=== PATIENT | female | born 1980 | race Caucasian/White ===

== ENCOUNTER 2018-09-04 10:37 | Emergency (ER) | payer BC ==
--- NOTE | 2018-09-04 12:23 | RAD REPORT ---
EXAM DESCRIPTION: RAD - Chest Single View - 09/04/2018 12:19 pm CLINICAL HISTORY: CHEST PAIN Chest pain. COMPARISON: Chest Pa And Lat (2 Views) dated 11/16/2015; Chest Single View dated 11/13/2015 FINDINGS: Portable technique limits examination quality. The lungs are grossly clear. The heart is normal in size. No displaced fractures. IMPRESSION: No acute intrathoracic process suspected.
[2018-09-04] MEDS ORDERED: ASPIRIN 81 MG CHEWABLE TABLET ONE (12:24)
[2018-09-04] MEDS ORDERED: METOPROLOL XL 50 MG TAB PO ONE (12:24)
[2018-09-04] MEDS ORDERED: NA CHLORIDE 0.9% 1,000 ML ONE (12:24)
[2018-09-04 12:40] LABS: Absolute Lymphocytes (CBC) 2.1 K/uL (0.7-4.9); Absolute Monocytes 0.6 K/uL (0.1-1.3); Absolute Neutrophil 3.8 K/uL (1.8-8.0); Basophils % 0.6 % (0-1.3); Hematocrit 40.3 % (36.0-45.0); Lymphocytes % 31.7 % (15.3-44.8); MPV 9.8 fL (7.6-11.3); Monocytes % 8.2 % (3.3-12.3); RBC Red Blood Cell Count 5.02 M/uL (3.86-4.86)
[2018-09-04 12:44] LABS: Protime INR 1.08
[2018-09-04 13:12] LABS: ALT/SGPT 23 U/L (12-78); AST/SGOT 19 U/L (15-37); Albumin 3.7 g/dL (3.4-5.0); Alkaline Phosphatase 69 U/L (45-117); BUN Blood Urea Nitrogen 12 mg/dL (7-18); Bicarbonate 27 mmol/L (21-32); Bilirubin Direct < 0.1 mg/dL (0-0.2); Bilirubin Total 0.3 mg/dL (0.2-1.0); CKMB Creatine Kinase MB < 1.0 ng/mL (0.3-3.6); Creatine Phosphokinase 55 U/L (26-192); Glucose Level 82 mg/dL (74-106); Magnesium 1.8 mg/dL (1.8-2.4); NT PRO-BNP 24 pg/mL (<125); Potassium 3.9 mmol/L (3.5-5.1); Protein, Total 7.4 g/dL (6.4-8.2); Sodium Level 141 mmol/L (136-145); Troponin (Emerg Dept Use Only) < 0.02 ng/mL (0.0-0.045)
--- NOTE | 2018-09-04 13:20 | ER ---
Nurse's Notes [facility] Name: Yumiko Orozco Age: 38 yrs Sex: Female : 1980 Arrival Date: 09/04/2018 Time: 10:40 Bed 23 Private MD: Aly Demarco Diagnosis: Palpitations;Pain in left arm Presentation: 09/04 10:45 Presenting complaint: Patient states: left arm pain x 1 day and pain has increased sv since last night. Reports feeling "flutters" in her heart at night when she lays down. Denies SOB, n/v/d. Transition of care: patient was not received from another setting of care. Onset of symptoms was September 03, 2018. Care prior to arrival: None. 10:45 Method Of Arrival: Ambulatory sv 10:45 Acuity: TROY 3 sv 13:56 Risk Assessment: Do you want to hurt yourself or someone else? Patient reports no aj desire to harm self or others. Initial Sepsis Screen: Does the patient meet any 2 criteria? No. Patient's initial sepsis screen is negative. Does the patient have a suspected source of infection? No. Patient's initial sepsis screen is negative. 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 - Social history:: Smoking status: Patient/guardian denies using tobacco. - Family history:: not pertinent. - Ebola Screening: : Patient negative for fever greater than or equal to 101.5 degrees Fahrenheit, and additional compatible Ebola Virus Disease symptoms Patient denies exposure to infectious person Patient denies travel to an Ebola-affected area in the 21 days before illness onset No symptoms or risks identified at this time. Screenin:10 Abuse screen: Denies threats or abuse. Denies injuries from another. Nutritional aj screening: No deficits noted. Tuberculosis screening: No symptoms or risk factors identified. Fall Risk None identified. Assessment: 11:10 General: Appears in no apparent distress. comfortable, Behavior is calm, cooperative, aj appropriate for age. Pain: Complains of pain in left arm. Neuro: Level of Consciousness is awake, alert, obeys commands, Oriented to person, place, time, situation, Appropriate for age. Cardiovascular: Reports palpitations, Capillary refill < 3 seconds in bilateral fingers Patient's skin is warm and dry. Respiratory: Airway is patent Respiratory effort is even, unlabored, Respiratory pattern is regular, symmetrical. Derm: Skin is intact, is healthy with good turgor, Skin is pink, warm \\T\\ dry. normal. 13:20 Reassessment: Patient discharge pending physician. Patient waiting for diagnosis. aj 13:41 Reassessment: Patient appears in no apparent distress at this time. No changes from aj previously documented assessment. Patient and/or family updated on plan of care and expected duration. Pain level reassessed. Patient is alert, oriented x 3, equal unlabored respirations, skin warm/dry/pink. Patient denies pain at this time. Vital Signs: 10:46 BP 123 / 78; Pulse 78; Resp 18; Temp 98.2; Pulse Ox 100% ; Weight 79.38 kg; Height 5 sv ft. 6 in. (167.64 cm); Pain 5/10; 12:27 BP 109 / 75; Pulse 72; Resp 20; Pulse Ox 100% on R/A; aj 13:19 BP 112 / 89; Pulse 69; Resp 18; Pulse Ox 100% on R/A; aj 10:46 Body Mass Index 28.25 (79.38 kg, 167.64 cm) sv ED Course: 10:40 Patient arrived in ED. mr 10:40 Aly Demarco MD is Private Physician. mr 10:46 Triage completed. sv 10:48 Arm band placed on. sv 10:51 Alexandrea Herrera, RAISA is Primary Nurse. aj 10:53 Narciso Perdomo MD is Attending Physician. jerilyn 11:10 Patient has correct armband on for positive identification. aj 11:15 EKG done, by aviation safety equipment technician. reviewed by Narciso Perdomo MD. at1 12:17 X-ray completed. Portable x-ray completed in exam room. Patient tolerated procedure jw2 well. 12:19 XRAY Chest (1 view) In Process Unspecified. EDMS 12:23 Inserted saline lock: 20 gauge in left antecubital area, using aseptic technique. Blood aj collected. 12:26 TSH Sent. aj 12:26 Ckmb Sent. aj 12:26 Basic Metabolic Panel Sent. aj 12:26 CBC with Diff Sent. aj 12:26 LFT's Sent. aj 12:26 Magnesium Sent. aj 12:26 NT PRO-BNP Sent. aj 12:27 PT-INR Sent. aj 12:27 Troponin (emerg Dept Use Only) Sent. aj 13:19 Aly Demarco MD is Referral Physician. jerilyn 13:19 Javed Louise MD is Referral Physician. jerilyn 13:55 No provider procedures requiring assistance completed. IV discontinued, intact, aj bleeding controlled, No redness/swelling at site. Pressure dressing applied. Administered Medications: 12:22 Drug: Aspirin 162 mg Route: PO; aj 13:18 Follow up: Response: No adverse reaction aj 12:24 Not Given (Hemodynamic Parameters): ToPROL XL 25 mg PO once aj Outcome: 13:19 Discharge ordered by MD. jerilyn 13:55 Discharged to home ambulatory, with friend. aj 13:55 Condition: good 13:55 Discharge instructions given to patient, Instructed on discharge instructions, follow up and referral plans. medication usage, Demonstrated understanding of instructions, follow-up care, medications, Prescriptions given X 1. 13:57 Patient left the ED. aj Signatures: Dispatcher [employer] EDCristal Hernandez RN RN sv Myers, Amanda, Narciso Hsatings RN, MD MD cha Rivera, [facility] Alexandrea Gale, pan devulcanizer helper EKG Tat1 Neris Rodrigues jw2
--- NOTE | 2018-09-04 13:20 | EDPHYS ---
Physician Documentation [facility] Name: Yumiko Orozco Age: 38 yrs Sex: Female : 1980 Arrival Date: 09/04/2018 Time: 10:40 Bed 23 Private MD: Aly Demarco ED Physician Narciso Perdomo HPI: 09/04 12:02 This 38 yrs old Female presents to ER via Ambulatory with complaints of Arm jerilyn Pain. 12:02 The patient or guardian complains of pain. The complaints affect the left bicep, dorsal jerilyn aspect of left forearm, left tricep and palmar aspect of left forearm. Context: The problem was sustained at home. Onset: The symptoms/episode began/occurred last night. Modifying factors: The symptoms are alleviated by nothing. the symptoms are aggravated by nothing. Associated signs and symptoms: The patient has no apparent associated signs or symptoms. 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 - Social history:: Smoking status: Patient/guardian denies using tobacco. - Family history:: not pertinent. - Ebola Screening: : Patient negative for fever greater than or equal to 101.5 degrees Fahrenheit, and additional compatible Ebola Virus Disease symptoms Patient denies exposure to infectious person Patient denies travel to an Ebola-affected area in the 21 days before illness onset No symptoms or risks identified at this time. ROS: 12:02 Constitutional: Negative for fever, chills, and weight loss, Eyes: Negative for injury, jerilyn pain, redness, and discharge, ENT: Negative for injury, pain, and discharge, Neck: Negative for injury, pain, and swelling, Cardiovascular: Negative for chest pain, palpitations, and edema, Respiratory: Negative for shortness of breath, cough, wheezing, and pleuritic chest pain, Abdomen/GI: Negative for abdominal pain, nausea, vomiting, diarrhea, and constipation, Back: Negative for injury and pain, : Negative for injury, bleeding, discharge, and swelling, Skin: Negative for injury, rash, and discoloration, Neuro: Negative for headache, weakness, numbness, tingling, and seizure, Psych: Negative for depression, anxiety, suicide ideation, homicidal ideation, and hallucinations, Allergy/Immunology: Negative for hives, rash, and allergies, Endocrine: Negative for neck swelling, polydipsia, polyuria, polyphagia, and marked weight changes. 12:02 MS/extremity: Positive for pain, of the left arm. Exam: 12:02 Constitutional: This is a well developed, well nourished patient who is awake, alert, jerilyn and in no acute distress. Head/Face: Normocephalic, atraumatic. Eyes: Pupils equal round and reactive to light, extra-ocular motions intact. Lids and lashes normal. Conjunctiva and sclera are non-icteric and not injected. Cornea within normal limits. Periorbital areas with no swelling, redness, or edema. ENT: Nares patent. No nasal discharge, no septal abnormalities noted. Tympanic membranes are normal and external auditory canals are clear. Oropharynx with no redness, swelling, or masses, exudates, or evidence of obstruction, uvula midline. Mucous membranes moist. Neck: Trachea midline, no thyromegaly or masses palpated, and no cervical lymphadenopathy. Supple, full range of motion without nuchal rigidity, or vertebral point tenderness. No Meningismus. Chest/axilla: Normal chest wall appearance and motion. Nontender with no deformity. No lesions are appreciated. Cardiovascular: Regular rate and rhythm with a normal S1 and S2. No gallops, murmurs, or rubs. Normal PMI, no JVD. No pulse deficits. Respiratory: Lungs have equal breath sounds bilaterally, clear to auscultation and percussion. No rales, rhonchi or wheezes noted. No increased work of breathing, no retractions or nasal flaring. Abdomen/GI: Soft, non-tender, with normal bowel sounds. No distension or tympany. No guarding or rebound. No evidence of tenderness throughout. Back: No spinal tenderness. No costovertebral tenderness. Full range of motion. Female : Normal external genitalia. Skin: Warm, dry with normal turgor. Normal color with no rashes, no lesions, and no evidence of cellulitis. MS/ Extremity: Pulses equal, no cyanosis. Neurovascular intact. Full, normal range of motion. Neuro: Awake and alert, GCS 15, oriented to person, place, time, and situation. Cranial nerves II-XII grossly intact. Motor strength 5/5 in all extremities. Sensory grossly intact. Cerebellar exam normal. Normal gait. Psych: Awake, alert, with orientation to person, place and time. Behavior, mood, and affect are within normal limits. 12:08 Musculoskeletal/extremity: DVT Exam: No signs of deep vein thrombosis. no pain, no jerilyn swelling, no tenderness, negative Homans' sign noted on exam, no appreciated bluish discoloration, no erythema, no increased warmth. Vital Signs: 10:46 BP 123 / 78; Pulse 78; Resp 18; Temp 98.2; Pulse Ox 100% ; Weight 79.38 kg; Height 5 sv ft. 6 in. (167.64 cm); Pain 5/10; 12:27 BP 109 / 75; Pulse 72; Resp 20; Pulse Ox 100% on R/A; aj 13:19 BP 112 / 89; Pulse 69; Resp 18; Pulse Ox 100% on R/A; aj 10:46 Body Mass Index 28.25 (79.38 kg, 167.64 cm) sv MDM: 10:[address] [facility] 12:07 Data reviewed: vital signs, nurses notes, lab test result(s), EKG, radiologic studies, jerilyn plain films. 09/04 12:02 Order name: Basic Metabolic Panel; Complete Time: 13:18 [facility] 09/04 12:02 Order name: CBC with Diff; Complete Time: 12:56 [facility] 09/04 12:02 Order name: LFT's; Complete Time: 13:18 [facility] 09/04 12:02 Order name: Magnesium; Complete Time: 13:18 [facility] 09/04 12:02 Order name: NT PRO-BNP; Complete Time: 13:18 [facility] 09/04 12:02 Order name: PT-INR; Complete Time: 13:18 [facility] 09/04 10:48 Order name: EKG; Complete Time: 10:49 09/04 12:02 Order name: Troponin (emerg Dept Use Only); Complete Time: 13:18 [facility] 09/04 12:02 Order name: XRAY Chest (1 view); Complete Time: 12:56 [facility] 09/04 12:02 Order name: CK; Complete Time: 13:18 [facility] 09/04 12:02 Order name: Ckmb; Complete Time: 13:18 [facility] 09/04 12:08 Order name: TSH; Complete Time: 13:18 [facility] 09/04 10:48 Order name: EKG - Nurse/Tech; Complete Time: 10:58 09/04 12:02 Order name: Cardiac monitoring; Complete Time: 12:11 [facility] 09/04 12:02 Order name: IV Saline Lock; Complete Time: 12:11 [facility] 09/04 12:02 Order name: Labs collected and sent; Complete Time: 12:11 [facility] 09/04 12:02 Order name: O2 Per Protocol; Complete Time: 12:11 [facility] 09/04 12:02 Order name: O2 Sat Monitoring; Complete Time: 12:11 [facility] Administered Medications: 12:22 Drug: Aspirin 162 mg Route: PO; aj 13:18 Follow up: Response: No adverse reaction 12:24 Not Given (Hemodynamic Parameters): ToPROL XL 25 mg PO once aj Disposition: 09/04/18 13:19 Discharged to Home. Impression: Palpitations, Pain in left arm. - Condition is Stable. - Discharge Instructions: Musculoskeletal Pain, Palpitations, Aspirin and Your Heart, Palpitations, [id number]. - Prescriptions for Toprol XL 25 mg Oral Tablet - take 1 tablet by ORAL route once daily; 20 tablet. - Medication Reconciliation Form, Thank You Letter, Antibiotic Education, Prescription Opioid Use form. - Follow up: Aly Demarco; When: 2 - 3 days; Reason: Recheck today's complaints, Continuance of care, Re-evaluation by your physician. Follow up: Javed Louise; When: 2 - 3 days; Reason: Recheck today's complaints, Re-evaluation by your physician. - Problem is new. - Symptoms have improved. Signatures: Dispatcher [employer] EDCristal Hernandez RN RN sv Myers, Amanda, RN RN aj Anderson, Corey, MD MD cha Alzahri, Mohammad, MD MD [facility] Corrections: (The following items were deleted from the chart) 13:57 13:19 09/04/2018 13:19 Discharged to Home. Impression: Palpitations; Pain in left arm. aj Condition is Stable. Discharge Instructions: Musculoskeletal Pain, Palpitations, Aspirin and Your Heart, Palpitations, [id number]. Prescriptions for Toprol XL 25 mg Oral Tablet - take 1 tablet by ORAL route once daily; 20 tablet. and Forms are Medication Reconciliation Form, Thank You Letter, Antibiotic Education, Prescription Opioid Use. Follow up: Aly Demarco; When: 2 - 3 days; Reason: Recheck today's complaints, Continuance of care, Re-evaluation by your physician. Follow up: Javed Louise; When: 2 - 3 days; Reason: Recheck today's complaints, Re-evaluation by your physician. Problem is new. Symptoms have improved. jerilyn
[2018-09-04 14:29] VITALS: TEMP 98.2; O2SAT 100
[2018-09-04 14:32] VITALS: BP 112/89
--- NOTE | 2018-09-04 20:51 | EKG ---
Test Date: 2018-09-04 Test Time: 10:57:51 Dog Walker: DESTINY MEASUREMENT RESULTS: Intervals: Rate: 71 HI: 146 QRSD: 84 QT: 382 QTc: 415 [place]: P: 67 HI: 146 QRS: 38 T: 55 INTERPRETIVE STATEMENTS: Normal sinus rhythm Normal ECG Compared to ECG 11/16/2015 13:10:53 Sinus bradycardia no longer present Electronically Signed On 09-04-18 20:48:03 BARREL SCRAPER by Javed Louise
== END 2018-09-04 13:57 | disposition home or self-care (01) ==
LOC: ER 10:37
DX: R00.2 Palpitations (principal)
CPT/HCPCS: 36415; 71045; 80048; 80076; 82550; 82553; 83735; 83880; 84443; 84484; 85025; 85610; 93005; 99284; J7030

== ENCOUNTER 2018-10-11 16:54 | Emergency (ER) | payer BC ==
[2018-10-11] MEDS ORDERED: ONDANSETRON 4 MG/2 ML VIAL ONE (18:08)
[2018-10-11] MEDS ORDERED: MORPHINE 4 MG/ML SYR ONE (18:08)
[2018-10-11 18:24] LABS: Absolute Lymphocytes (CBC) 1.4 K/uL (0.7-4.9); Absolute Monocytes 0.8 K/uL (0.1-1.3); Absolute Neutrophil 4.6 K/uL (1.8-8.0); Basophils % 0.3 % (0-1.3); Eosinophils % 1.9 % (0-4.4); Lymphocytes % 20.1 % (15.3-44.8); MPV 9.7 fL (7.6-11.3); Monocytes % 11.2 % (3.3-12.3); RBC Red Blood Cell Count 5.22 M/uL (3.86-4.86)
[2018-10-11 18:32] LABS: ALT/SGPT 29 U/L (12-78); AST/SGOT 18 U/L (15-37); Albumin 3.6 g/dL (3.4-5.0); Alkaline Phosphatase 69 U/L (45-117); BUN Blood Urea Nitrogen 10 mg/dL (7-18); Bicarbonate 27 mmol/L (21-32); Bilirubin Direct 0.1 mg/dL (0-0.2); Bilirubin Total 0.4 mg/dL (0.2-1.0); Glucose Level 86 mg/dL (74-106); Lipase 130 U/L (73-393); Potassium 3.6 mmol/L (3.5-5.1); Protein, Total 7.4 g/dL (6.4-8.2); Sodium Level 138 mmol/L (136-145)
[2018-10-11 19:28] LABS: Urine Blood NEGATIVE (NEG); Urine Glucose NEGATIVE (NEG); Urine Protein NEGATIVE (NEG); Urine Specific Gravity 1.015 (1.005-1.030); Urine pH 5.5 (5.0-7.0)
--- NOTE | 2018-10-11 19:30 | RAD REPORT ---
EXAM DESCRIPTION: CT - Abdomen Pelvis W Contrast - 10/11/2018 7:09 pm CLINICAL HISTORY: Abdominal pain/right lower quadrant pain COMPARISON: none. TECHNIQUE: Computed axial tomography of the abdomen pelvis was obtained. 100 cc Isovue-300 was admin istered intravenously. Oral contrast was not requested which limits evaluation of bowel. All CT scans are performed using dose optimization technique as appropriate and may include automated exposure control or mA/KV adjustment according to patient size. FINDINGS: Small hepatic cyst. Cholecystectomy Spleen, pancreas, adrenal and kidneys appear unremarkable. There is no evidence of diverticulitis. The appendix is normal caliber. An adnexal mass is not seen. 12 millimeter mass extends off of the left aspect of the uterus likely r epresenting a subserosal fibroid An irregularly-shaped 13 millimeter right ovarian follicle is present with small amount of free fluid IMPRESSION: An irregularly-shaped 13 millimeter right ovarian follicle is present with small amount of free fluid. It probably has recently ruptured
[2018-10-11 21:01] LABS: Troponin (Emerg Dept Use Only) < 0.02 ng/mL (0.0-0.045)
--- NOTE | 2018-10-11 22:28 | P.HP ---
Patient History Date of Service: 10/11/18 Allergies No Known Drug Allergies Allergy (Unverified 11/13/15 15:41) Unknown Home Medications: NK [No Home Meds] 07/25/14 Physical Examination - Studies Laboratory Data (last 24 hrs) 10/11/18 18:02: Creatinine 0.83 10/11/18 18:02: WBC 6.9, Hgb 14.2, Hct 43.0, Plt Count 241 10/11/18 18:02: Sodium 138, Potassium 3.6, BUN 10, Creatinine 0.85, Glucose 86, Total Bilirubin 0.4, AST 18, ALT 29, Alkaline Phosphatase 69, Lipase 130 Assessment and Plan - Advance Directives Does patient have a Living Will: No Does patient have a Durable POA for Healthcare: No
--- NOTE | 2018-10-11 22:40 | P.CNS ---
Date of Consult: 10/11/18 Reason for Consult: abdominal pain, elevated d-dimer Requesting Physician: Dewey Hernández Chief Complaint: abdominal pain History of Present Illness: Ms Orozco is a 38 years old woman with history of OPS, s/p endometrial ablation due to menorrhagia on 2013, who came to ED complaining of lower abdominal pain, radiated to right flank, leading with shallow breathing episodes. No fever or chills, no nausea, vomiting or diarrhea. The pain was colicky like, 8/10 of intensity. She has never had this kind of pain before. Lab work mostly unremarkable except for elevated d-dimer. She does have negative pretest for thromboembolic episode. CT abd/pelvis shows signs consistent with a ruptured right ovarian cyst. Allergies No Known Drug Allergies Allergy (Unverified 11/13/15 15:41) Unknown Home medications list reviewed: Yes Home Medications: NK [No Home Meds] 07/25/14 - Past Medical/Surgical History -: ovarian polycystic syndrome -: endometrial ablation - Social History Smoking Status: Never smoker CD- Drugs: No Place of Residence: Home Review of Systems 10-point ROS is otherwise unremarkable Physical Examination General: Alert, In no apparent distress HEENT: Atraumatic, PERRLA, Mucous membr. moist/pink, EOMI, Sclerae nonicteric Neck: Supple, 2+ carotid pulse no bruit, No LAD, Without JVD or thyroid abnormality Respiratory: Clear to auscultation bilaterally, Normal air movement Cardiovascular: Regular rate/rhythm, Normal S1 S2 Gastrointestinal: Normal bowel sounds, Tenderness (trender to palpation on lowr abdomen, mostly localized on RLQ.) Musculoskeletal: No tenderness Integumentary: No rashes Neurological: Normal gait, Normal speech, Normal tone, Normal affect Lymphatics: No axilla or inguinal lymphadenopathy Laboratory Data (last 24 hrs) 10/11/18 18:02: Creatinine 0.83 10/11/18 18:02: WBC 6.9, Hgb 14.2, Hct 43.0, Plt Count 241 10/11/18 18:02: Sodium 138, Potassium 3.6, BUN 10, Creatinine 0.85, Glucose 86, Total Bilirubin 0.4, AST 18, ALT 29, Alkaline Phosphatase 69, Lipase 130 - Problems (1) Abdominal pain Current Visit: Yes Status: Acute Qualifiers: Abdominal location: lower abdomen, unspecified Qualified Code(s): R10.30 - Lower abdominal pain, unspecified (2) Elevated d-dimer Current Visit: Yes Status: Acute (3) Ruptured ovarian cyst Current Visit: Yes Status: Acute Conclusions/Impression: Her abdominal pain is mostly localized on RLQ. This is most likely secondary to a ruptured ovarian cyst. HH are stable, no signs of significant bleeding. test negative to R/O ectopic . 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 D-Dimer eleavation without clinical correlation for thromboembolic episode. Thanks for the consult.
--- NOTE | 2018-10-11 22:41 | EDPHYS ---
Physician Documentation [facility] Name: Yumiko Orozco Age: 38 yrs Sex: Female : 1980 Arrival Date: 10/11/2018 Time: 16:55 Bed 25 Private MD: ED Physician Kaushal Nazario HPI: 10/11 17:42 This 38 yrs old Female presents to ER via Ambulatory with complaints of jmm Abdominal Pain. 17:42 The patient presents with abdominal pain right flank, right lower abdomen. Onset: The jmm symptoms/episode began/occurred this morning. The symptoms radiate to right back. Associated signs and symptoms: Pertinent negatives: fever. The symptoms are described as achy. This is a 38 year old female with a history of anemia that presents to the ED with complaints of right flank pain beginning this morning. Patient states having intermittent episode of right flank pain along with right lower abdominal pain. patient denies vomiting or diarrhea. patient denies fever. . 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 - Social history:: Smoking status: Patient uses tobacco products, smokes one-half pack cigarettes per day. - Ebola Screening: : Patient denies exposure to infectious person Patient denies travel to an Ebola-affected area in the 21 days before illness onset. ROS: 17:42 Constitutional: Negative for fever, chills, and weight loss, Cardiovascular: Negative jmm for chest pain, palpitations, and edema, Respiratory: Negative for shortness of breath, cough, wheezing, and pleuritic chest pain. 17:42 Abdomen/GI: Positive for abdominal pain. 17:42 Back: Positive for flank pain, on the right. 17:42 All other systems are negative. Exam: 17:42 Head/Face: atraumatic. Eyes: EOMI, no conjunctival erythema appreciated ENT: Moist jmm Mucus Membranes Neck: Trachea midline, Supple Chest/axilla: Normal chest wall appearance and motion. Cardiovascular: Regular rate and rhythm. No edema appreciated Respiratory: Normal respirations, no respiratory distress appreciated 17:42 Constitutional: The patient appears in no acute distress, alert, awake. 17:42 Abdomen/GI: Inspection: abdomen appears normal, Bowel sounds: normal, Palpation: soft, moderate abdominal tenderness, in the right upper quadrant and right lower quadrant. 17:42 Back: CVA tenderness, that is moderate, is noted on the right. 17:42 Musculoskeletal/extremity: ROM: intact in all extremities. 17:42 Skin: Appearance: Color: normal in color. 17:42 Neuro: Orientation: is normal, Mentation: is normal, Memory: is normal. 17:42 Psych: Behavior/mood is pleasant, cooperative. Vital Signs: 17:26 BP 111 / 87; Pulse 101; Resp 18; Temp 97.9(TE); Pulse Ox 99% on R/A; Weight 77.11 kg tw2 (R); Height 5 ft. 6 in. (167.64 cm); Pain 8/10; 18:24 BP 110 / 71; Pulse 60; Resp 19; Pulse Ox 100% on R/A; ca1 19:30 BP 103 / 62; Pulse 75; Resp 19; Pulse Ox 98% on R/A; ca1 20:29 BP 94 / 61; Pulse 66; Resp 19; Pulse Ox 100% on R/A; ca1 21:39 BP 93 / 59; Pulse 59; Resp 19; Pulse Ox 97% on R/A; ca1 22:31 BP 96 / 64; Pulse 66; Resp 19; Pulse Ox 99% on R/A; ca1 17:26 Body Mass Index 27.44 (77.11 kg, 167.64 cm) tw2 MDM: 17:42 Patient medically screened. kaylan 22:36 Data reviewed: vital signs, nurses notes. Counseling: I had a detailed discussion with kaylan the patient and/or guardian regarding: the historical points, exam findings, and any diagnostic results supporting the discharge/admit diagnosis, radiology results, the need for outpatient follow up, to return to the emergency department if symptoms worsen or persist or if there are any questions or concerns that arise at home. ED course: PERC SCORE NEGATIVE.. ED course: Patient states elevated d-dimer in the past. Patient was diagnosed with bronchitis last weeks. Symptoms may be due to musculoskeletal pain. CXR clear. . 10/11 17:44 Order name: Basic Metabolic Panel; Complete Time: 21:12 francis 10/11 17:44 Order name: CBC with Diff; Complete Time: 18:28 [facility] 10/11 17:44 Order name: Creatinine for Radiology; Complete Time: 18:50 [facility] 10/11 17:44 Order name: Hepatic Function; Complete Time: 21:12 [facility] 10/11 17:44 Order name: Lipase; Complete Time: 21:12 [facility] 10/11 17:56 Order name: Urine Dipstick--Ancillary (enter results); Complete Time: 19:34 em1 10/11 17:45 Order name: CT Abd/Pelvis - W/Contrast; Complete Time: 19:34 [facility] 10/11 19:53 Order name: D-Dimer; Complete Time: 21:14 [facility] 10/11 20:40 Order name: Troponin (Emerg Dept Use Only); Complete Time: 21:12 [facility] 10/11 21:16 Order name: Chest Single View XRAY [facility] 10/11 17:44 Order name: IV Saline Lock; Complete Time: 17:55 [facility] 10/11 17:44 Order name: Labs collected and sent; Complete Time: 17:55 [facility] 10/11 17:44 Order name: Urine Dipstick-Ancillary (obtain specimen); Complete Time: 17:55 [facility] 10/11 22:11 Order name: Urine Test (obtain specimen); Complete Time: 22:24 jmm Administered Medications: 17:55 Drug: Zofran 4 mg Route: IVP; Site: left antecubital; ca1 20:25 Follow up: Response: Nausea is decreased ca1 17:57 Drug: morphine 4 mg Route: IVP; Site: left antecubital; ca1 18:00 Follow up: Response: No adverse reaction; Pain is decreased ca1 22:52 Not Given (Patient Refused): fentaNYL (PF) 50 mcg IVP once ca1 Disposition: 10/12 07:51 Co-signature as Attending Physician, Kaushal Nazario MD I agree with the assessment and kdr plan of care. Disposition: 10/11/18 22:40 Discharged to Home. Impression: Flank Pain, Ruptured Ovarian Cyst. - Condition is Stable. - Discharge Instructions: Flank Pain, Adult, Ovarian Cyst. - Prescriptions for Tylenol- Codeine #3 300-30 mg Oral Tablet - take 1 tablet by ORAL route every 6 hours As needed; 12 tablet. - Medication Reconciliation Form, Thank You Letter, Antibiotic Education, Prescription Opioid Use, Work release form form. - Follow up: Goldy Michele MD; When: 2 - 3 days; Reason: Recheck today's complaints, Continuance of care, Re-evaluation by your physician. Signatures: Dispatcher [employer] [facility] Kaushal Nazario MD MD kdr Mickail, Joel, PA PA jmm Wise, Tara, RN RN tw2 Harini Aragon RN RN ca1 Corrections: (The following items were deleted from the chart) 10/11 20:40 20:19 TROPONIN (EMERG DEPT USE ONLY)+C.LAB.BRZ ordered. [facility] 22:55 22:40 10/11/2018 22:40 Discharged to Home. Impression: Flank Pain; Ruptured Ovarian ca1 Cyst. Condition is Stable. Forms are Work release form, Medication Reconciliation Form, Thank You Letter, Antibiotic Education, Prescription Opioid Use. Follow up: Goldy Michele; When: 2 - 3 days; Reason: Recheck today's complaints, Continuance of care, Re-evaluation by your physician. kaylan
--- NOTE | 2018-10-11 22:41 | ER ---
Nurse's Notes [facility] Name: Yumiko Orozco Age: 38 yrs Sex: Female : 1980 Arrival Date: 10/11/2018 Time: 16:55 Bed 25 Private MD: Diagnosis: Flank Pain;Ruptured Ovarian Cyst Presentation: 10/11 17:24 Presenting complaint: Patient states: i woke up early this morning i had this terrible tw2 pain in my stomach under my rib cage, it carlos like a big gas bubble, i woke my up because i was crying, i managed to drift on an off, i have had the pain all day, my lower back is starting to hurt and i am starting to have sharp pains in my appendix area. Transition of care: patient was not received from another setting of care. Onset of symptoms was October 11, 2018. Risk Assessment: Do you want to hurt yourself or someone else? Patient reports no desire to harm self or others. Initial Sepsis Screen: Does the patient meet any 2 criteria? No. Patient's initial sepsis screen is negative. Does the patient have a suspected source of infection? No. Patient's initial sepsis screen is negative. Care prior to arrival: None. 17:24 Method Of Arrival: Ambulatory tw2 17:24 Acuity: TROY 3 tw2 Triage Assessment: 17:26 General: Appears in no apparent distress. Behavior is calm, cooperative, appropriate tw2 for age. Pain: Complains of pain in abdomen. GI: Reports lower abdominal pain, upper abdominal pain, nausea. 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 - Social history:: Smoking status: Patient uses tobacco products, smokes one-half pack cigarettes per day. - Ebola Screening: : Patient denies exposure to infectious person Patient denies travel to an Ebola-affected area in the 21 days before illness onset. Screenin:30 Abuse screen: Denies threats or abuse. Denies injuries from another. Nutritional ca1 screening: No deficits noted. Tuberculosis screening: No symptoms or risk factors identified. Fall Risk 17:30 Fall Risk IV access (20 points). ca1 Assessment: 17:30 General: Appears in no apparent distress. comfortable, Behavior is calm, cooperative, ca1 appropriate for age. Pain: Complains of pain in right upper quadrant Pain radiates to posterior aspect of right lateral abdomen and anterior aspect of right lateral abdomen Pain currently is 8 out of 10 on a pain scale. Quality of pain is described as sharp, Pain began 2-3 days ago. Is intermittent. Neuro: Level of Consciousness is awake, alert, obeys commands, Oriented to person, place, time, situation. Cardiovascular: Heart tones S1 S2 present Capillary refill < 3 seconds Patient's skin is warm and dry. Respiratory: Airway is patent Respiratory effort is even, unlabored, Respiratory pattern is regular, symmetrical, Breath sounds are clear bilaterally. GI: Abdomen is round non-distended, Bowel sounds present X 4 quads. Abd is soft X 4 quads Abdomen is tender to palpation in right upper quadrant and right lower quadrant Reports nausea. : No signs and/or symptoms were reported regarding the genitourinary system. EENT: No signs and/or symptoms were reported regarding the EENT system. Derm: Skin is intact, is healthy with good turgor, Skin is pink, warm \T\ dry. Musculoskeletal: Circulation, motion, and sensation intact. Capillary refill < 3 seconds. 18:24 Reassessment: Patient appears in no apparent distress at this time. Patient and/or ca1 family updated on plan of care and expected duration. Pain level reassessed. Patient is alert, oriented x 3, equal unlabored respirations, skin warm/dry/pink. 19:20 Reassessment: Patient appears in no apparent distress at this time. Patient and/or ca1 family updated on plan of care and expected duration. Pain level reassessed. Patient is alert, oriented x 3, equal unlabored respirations, skin warm/dry/pink. 20:25 Reassessment: Patient appears in no apparent distress at this time. Patient and/or ca1 family updated on plan of care and expected duration. Pain level reassessed. Patient is alert, oriented x 3, equal unlabored respirations, skin warm/dry/pink. Pt requested to hold off on the Fentanyl for now. She's not in a lot of pain right now, it is just worst during an episode. 21:38 Reassessment: Patient appears in no apparent distress at this time. Patient and/or ca1 family updated on plan of care and expected duration. Pain level reassessed. Patient is alert, oriented x 3, equal unlabored respirations, skin warm/dry/pink. New tests ordered. 22:31 Reassessment: Patient appears in no apparent distress at this time. Patient and/or ca1 family updated on plan of care and expected duration. Pain level reassessed. Patient is alert, oriented x 3, equal unlabored respirations, skin warm/dry/pink. Dr. Yanes at bedside. Provider ordered UPT, informed provider pt had uterine ablation 4 years ago and hasn't had a period in 4.5 years. Still went to run urine for PT. Result is negative. Vital Signs: 17:26 BP 111 / 87; Pulse 101; Resp 18; Temp 97.9(TE); Pulse Ox 99% on R/A; Weight 77.11 kg tw2 (R); Height 5 ft. 6 in. (167.64 cm); Pain 8/10; 18:24 BP 110 / 71; Pulse 60; Resp 19; Pulse Ox 100% on R/A; ca1 19:30 BP 103 / 62; Pulse 75; Resp 19; Pulse Ox 98% on R/A; ca1 20:29 BP 94 / 61; Pulse 66; Resp 19; Pulse Ox 100% on R/A; ca1 21:39 BP 93 / 59; Pulse 59; Resp 19; Pulse Ox 97% on R/A; ca1 22:31 BP 96 / 64; Pulse 66; Resp 19; Pulse Ox 99% on R/A; ca1 17:26 Body Mass Index 27.44 (77.11 kg, 167.64 cm) tw2 ED Course: 16:55 Patient arrived in ED. ds1 17:25 Triage completed. tw2 17:25 Arm band placed on. tw2 17:28 Dewey Hernández PA is PHCP. [facility] 17:28 Kaushal Nazario MD is Attending Physician. jmm 17:30 Patient has correct armband on for positive identification. Placed in gown. Bed in low ca1 position. Call light in reach. Pulse ox on. NIBP on. Warm blanket given. 17:41 Harini Aragon, RAISA is Primary Nurse. ca1 17:50 Radiology exam delayed due to lab results not completed at this time. (BUN/Creatinine). jg6 17:50 Missed attempt(s): 20 gauge in right antecubital area. ca1 17:50 Inserted saline lock: 22 gauge in left antecubital area, using aseptic technique. ca1 ,using aseptic technique. by [facility] Blood collected. 19:07 CT completed. Patient tolerated procedure well. Patient moved back from CT. 2 19:09 CT Abd/Pelvis - W/Contrast In Process Unspecified. EDMS 21:48 Chest Single View XRAY In Process Unspecified. EDMS 22:39 Goldy Michele MD is Referral Physician. [facility] 22:52 No provider procedures requiring assistance completed. IV discontinued, intact, ca1 bleeding controlled, No redness/swelling at site. Pressure dressing applied. Administered Medications: 17:55 Drug: Zofran 4 mg Route: IVP; Site: left antecubital; ca1 20:25 Follow up: Response: Nausea is decreased ca1 17:57 Drug: morphine 4 mg Route: IVP; Site: left antecubital; ca1 18:00 Follow up: Response: No adverse reaction; Pain is decreased ca1 22:52 Not Given (Patient Refused): fentaNYL (PF) 50 mcg IVP once ca1 Outcome: 22:40 Discharge ordered by MD. [facility] 22:52 Discharged to home ambulatory. ca1 22:52 Condition: stable 22:52 Discharge instructions given to patient, Instructed on discharge instructions, follow up and referral plans. medication usage, Demonstrated understanding of instructions, follow-up care, medications, Prescriptions given X 1. 22:55 Patient left the ED. ca1 Signatures: Dispatcher [employer] EDSC Dewey Hernández PA PA Carlie Arana ds1 Neha Domínguez, RN RN tw2 Radha Corbin 2 Sally Ruff jg6 Harini Aragon RN RN ca1 Corrections: (The following items were deleted from the chart) 20:31 20:25 Reassessment: Patient appears in no apparent distress at this time. Patient ca1 and/or family updated on plan of care and expected duration. Pain level reassessed. Patient is alert, oriented x 3, equal unlabored respirations, skin warm/dry/pink. ca1 21:39 20:25 Reassessment: Patient appears in no apparent distress at this time. Patient ca1 and/or family updated on plan of care and expected duration. Pain level reassessed. Patient is alert, oriented x 3, equal unlabored respirations, skin warm/dry/pink. Pt requested to hold off on the Fentanyl for now. She's not in a lot of pain right now, it is just worst during an episode. ca1
[2018-10-11 23:22] VITALS: TEMP 97.9
[2018-10-11 23:28] VITALS: BP 96/64; O2SAT 99
--- NOTE | 2018-10-12 08:13 | RAD REPORT ---
EXAM DESCRIPTION: RAD - Chest Single View - 10/11/2018 9:48 pm CLINICAL HISTORY: Chest pain, shortness of breath COMPARISON: September 04, 2018 TECHNIQUE: AP portable chest image was obtained 2143 hours . FINDINGS: No focal mass, consolidation or failure finding. Lung markings are not substantially diffe rent from comparison. Heart and vasculature are normal. No measurable pleural effusion and no pneumot horax. No acute bony abnormality seen. No acute aortic findings suspected. IMPRESSION: No acute cardiopulmonary process. No significant interval change.
== END 2018-10-11 22:55 | disposition home or self-care (01) ==
LOC: ER 16:54
DX: N83.299 Other ovarian cyst, unspecified side (principal); F17.210 Nicotine dependence, cigarettes, uncomplicated
CPT/HCPCS: 36415; 71045; 74177; 80048; 80076; 81003; 83690; 84484; 85025; 85379; 96374; 96375; 99284; J2405; Q9967

== ENCOUNTER 2018-10-13 18:33 | Emergency (ER) | payer BC ==
[2018-10-13 21:09] LABS: Absolute Lymphocytes (CBC) 1.9 K/uL (0.7-4.9); Absolute Neutrophil 5.1 K/uL (1.8-8.0); Basophils % 0.5 % (0-1.3); Eosinophils % 3.3 % (0-4.4); Hematocrit 43.9 % (36.0-45.0); Lymphocytes % 22.3 % (15.3-44.8); MPV 9.3 fL (7.6-11.3); Monocytes % 11.9 % (3.3-12.3); RBC Red Blood Cell Count 5.36 M/uL (3.86-4.86)
--- NOTE | 2018-10-13 21:15 | RAD REPORT ---
EXAM DESCRIPTION: US - Transvaginal Study Probe - 10/13/2018 8:45 pm CLINICAL HISTORY: Right lower quadrant pain COMPARISON: CT study October 11 TECHNIQUE: Endovaginal and limited transabdominal sonography performed. FINDINGS: Cervical canal is normal. No abnormal endometrial finding. Uterus is approximately 6.7 x 4 .7 x 5.2 cm. Along the left posterior monitored of the fundus there is a 14 millimeter fibroid. This matches the CT study. There is a left intramural fibroid also present 15 mm in size. Left ovary is po sitioned anteriorly in the left lower quadrant. No suspicious left ovarian or left adnexal finding. T he CT study October 11 showed a a small leaking or ruptured follicle. Right ovary is prominent and less well defined than the left ovary. Doppler evaluation does demonstrate blood flow within the ovary but is difficult to obtain accurate tracing. There has likely been further rupture, leakage or hemorrhag e within the follicle. Minimal fluid in the cul de sac. No abnormal blood collection in the peritonea l cavity. IMPRESSION: Ill-defined right ovary believed to be secondary to a ruptured or hemorrhagic follicle. No suspicious left ovary or left adnexal finding. Normal-size uterus shows a 15 millimeter intramural and 13 millimeter exophytic fibroid. Follow-up sonography could be performed in 3 months to re-evaluate the right ovary for resolution of the suspected ruptured follicle.
[2018-10-13 21:22] LABS: Potassium 3.2 mmol/L (3.5-5.1)
[2018-10-13] MEDS ORDERED: KETOROLAC 30 MG/ML INJ ONE (21:23)
--- NOTE | 2018-10-13 23:32 | ER ---
Nurse's Notes [facility] Name: Yumiko Orozco Age: 38 yrs Sex: Female : 1980 Arrival Date: 10/13/2018 Time: 18:34 Bed 7 Private MD: Diagnosis: Other and unspecified ovarian cysts Presentation: 10/13 18:53 Presenting complaint: Patient states: RLQ, RUQ, epigastric pain started about 1.5 hrs sv ago. c/o nausea. Transition of care: patient was not received from another setting of care. Onset of symptoms was October 13, 2018. Care prior to arrival: None. 18:53 Method Of Arrival: Ambulatory sv 18:53 Acuity: TROY 3 sv 21:34 Initial Sepsis Screen: Does the patient meet any 2 criteria? No. Patient's initial aj1 sepsis screen is negative. Does the patient have a suspected source of infection? No. Patient's initial sepsis screen is negative. 21:34 Risk Assessment: Do you want to hurt yourself or someone else? Patient reports no aj1 desire to harm self or others. 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 - Social history:: Smoking status: unknown. - Ebola Screening: : No symptoms or risks identified at this time. Screenin:47 Abuse screen: Denies threats or abuse. Denies injuries from another. Nutritional aj1 screening: No deficits noted. Tuberculosis screening: No symptoms or risk factors identified. 22:54 Fall Risk Ambulatory Aid- None/Bed Rest/Nurse Assist (0 pts). Gait- Normal/Bed jd3 Rest/Wheelchair (0 pts) Mental Status- Oriented to own ability (0 pts). Total Cabral Fall Scale indicates No Risk (0-24 pts). Assessment: 19:47 General: Appears in no apparent distress. uncomfortable, Behavior is calm, cooperative, aj1 appropriate for age. Pain: Complains of pain in right upper quadrant and right lower quadrant Pain does not radiate. Pain currently is 7 out of 10 on a pain scale. at worst was 10 out of 10 on a pain scale. Quality of pain is described as aching, Pain began 2-3 days ago. Neuro: Level of Consciousness is awake, alert, obeys commands, Oriented to person, place, time, situation. Cardiovascular: Patient's skin is warm and dry. Respiratory: Airway is patent Respiratory effort is even, unlabored, Respiratory pattern is regular, symmetrical. GI: Abdomen is non-distended, Bowel sounds present X 4 quads. Abd is soft X 4 quads Abdomen is tender to palpation in right upper quadrant and right lower quadrant. : No signs and/or symptoms were reported regarding the genitourinary system. Denies discharge, vaginal bleeding. EENT: No signs and/or symptoms were reported regarding the EENT system. Derm: No signs and/or symptoms reported regarding the dermatologic system. Skin is pink, warm \T\ dry. normal. Musculoskeletal: No signs and/or symptoms reported regarding the musculoskeletal system. Circulation, motion, and sensation intact. 20:30 Reassessment: Patient appears in no apparent distress at this time. No changes from aj1 previously documented assessment. Patient and/or family updated on plan of care and expected duration. Pain level reassessed. Patient is alert, oriented x 3, equal unlabored respirations, skin warm/dry/pink. 21:32 Reassessment: Patient appears in no apparent distress at this time. No changes from aj1 previously documented assessment. Patient and/or family updated on plan of care and expected duration. Pain level reassessed. Patient is alert, oriented x 3, equal unlabored respirations, skin warm/dry/pink. 22:53 Reassessment: Patient appears in no apparent distress at this time. No changes from jd3 previously documented assessment. Patient and/or family updated on plan of care and expected duration. Pain level reassessed. Patient is alert, oriented x 3, equal unlabored respirations, skin warm/dry/pink. 10/14 00:00 Reassessment: Patient appears in no apparent distress at this time. Patient and/or jd3 family updated on plan of care and expected duration. Pain level reassessed. Patient is alert, oriented x 3, equal unlabored respirations, skin warm/dry/pink. Vital Signs: 10/13 18:55 BP 119 / 73; Pulse 76; Resp 20; Temp 98.6; Pulse Ox 100% ; Weight 77.11 kg; Height 5 sv ft. 6 in. (167.64 cm); Pain 8/10; 19:47 BP 110 / 78; Pulse 72; Resp 18; Pulse Ox 99% on R/A; Pain 7/10; aj1 20:30 BP 106 / 75; Pulse 67; Resp 18; Pulse Ox 100% ; aj1 21:33 BP 105 / 62; Pulse 73; Resp 18; Pulse Ox 98% on R/A; aj1 22:11 BP 107 / 70; Pulse 67; Resp 19 S; Pulse Ox 98% on R/A; jd3 22:53 BP 110 / 68; Pulse 76; Resp 17 S; Pulse Ox 100% on R/A; jd3 23:59 BP 106 / 71; Pulse 72; Resp 16 S; Pulse Ox 99% on R/A; jd3 18:55 Body Mass Index 27.44 (77.11 kg, 167.64 cm) sv ED Course: 18:34 Patient arrived in ED. as 18:55 Triage completed. sv 18:55 Arm band placed on. sv 19:41 Paloma Storey, RN is Primary Nurse. aj1 19:47 Patient has correct armband on for positive identification. Bed in low position. Call aj1 light in reach. Side rails up X 1. 19:47 No provider procedures requiring assistance completed. aj1 20:03 Nathan Chanel MD is Attending Physician. gs 20:46 Transvaginal Study Probe In Process Unspecified. EDMS 21:15 Inserted saline lock: 20 gauge in left antecubital area, using aseptic technique. Blood oe collected. 22:53 PO fluids given. jd3 23:28 Goldy Michele MD is Referral Physician. 10/14 00:07 IV discontinued, intact, bleeding controlled, No redness/swelling at site. Pressure jd3 dressing applied. Administered Medications: 10/13 21:17 Drug: TORadol 15 mg Route: IVP; Site: left antecubital; ao 21:35 Follow up: Response: No adverse reaction aj1 Outcome: 23:31 Discharge ordered by . 10/14 00:06 Discharged to home ambulatory, with family. jd3 Condition: stable Discharge instructions given to patient, family, Instructed on discharge instructions, follow up and referral plans. medication usage, Demonstrated understanding of instructions, follow-up care, medications, Prescriptions given X 2. 00:07 Patient left the ED. jd3 Signatures: Dispatcher [employer] EDMS Paloma Storey, RN RN ajCristal Nguyen, RN Yancy Mitchell Alex, RN Gabriel Harp Gregory, MD MD gs Davies, Jonathon, RN RN jd3
--- NOTE | 2018-10-13 23:32 | EDPHYS ---
Physician Documentation [facility] Name: Yumiko Orozco Age: 38 yrs Sex: Female : 1980 Arrival Date: 10/13/2018 Time: 18:34 Bed 7 Private MD: ED Physician Nathan Chanel HPI: 10/13 23:38 This 38 yrs old Female presents to ER via Ambulatory with complaints of gs Abdominal Pain. 23:38 The patient presents with pelvic pain. Onset: The symptoms/episode began/occurred 5 gs day(s) ago. Modifying factors: The symptoms are alleviated by nothing, the symptoms are aggravated by nothing. Associated signs and symptoms: The patient has no apparent associated signs or symptoms, Pertinent positives: cramping, Pertinent negatives: dysuria, urinary frequency. Severity of symptoms: At their worst the symptoms were severe, in the emergency department the symptoms have improved, markedly. The patient has experienced a previous episode. The patient has been recently seen at the [facility] Emergency Department, this week, for similar complaints. 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 - Social history:: Smoking status: unknown. - Ebola Screening: : No symptoms or risks identified at this time. ROS: 23:38 All other systems are negative. gs Exam: 23:38 Head/Face: Normocephalic, atraumatic. Eyes: Pupils equal round and reactive to light, gs extra-ocular motions intact. Lids and lashes normal. Conjunctiva and sclera are non-icteric and not injected. Cornea within normal limits. Periorbital areas with no swelling, redness, or edema. ENT: Nares patent. No nasal discharge, no septal abnormalities noted. Tympanic membranes are normal and external auditory canals are clear. Oropharynx with no redness, swelling, or masses, exudates, or evidence of obstruction, uvula midline. Mucous membranes moist. Neck: Trachea midline, no thyromegaly or masses palpated, and no cervical lymphadenopathy. Supple, full range of motion without nuchal rigidity, or vertebral point tenderness. No Meningismus. Chest/axilla: Normal chest wall appearance and motion. Nontender with no deformity. No lesions are appreciated. Cardiovascular: Regular rate and rhythm with a normal S1 and S2. No gallops, murmurs, or rubs. Normal PMI, no JVD. No pulse deficits. Respiratory: Lungs have equal breath sounds bilaterally, clear to auscultation and percussion. No rales, rhonchi or wheezes noted. No increased work of breathing, no retractions or nasal flaring. Back: No spinal tenderness. No costovertebral tenderness. Full range of motion. Skin: Warm, dry with normal turgor. Normal color with no rashes, no lesions, and no evidence of cellulitis. MS/ Extremity: Pulses equal, no cyanosis. Neurovascular intact. Full, normal range of motion. Neuro: Awake and alert, GCS 15, oriented to person, place, time, and situation. Cranial nerves II-XII grossly intact. Motor strength 5/5 in all extremities. Sensory grossly intact. Cerebellar exam normal. Normal gait. 23:38 Constitutional: The patient appears alert, awake. 23:38 Abdomen/GI: Palpation: moderate abdominal tenderness, in the suprapubic area and right lower quadrant, rebound tenderness, is not appreciated. Vital Signs: 18:55 BP 119 / 73; Pulse 76; Resp 20; Temp 98.6; Pulse Ox 100% ; Weight 77.11 kg; Height 5 sv ft. 6 in. (167.64 cm); Pain 8/10; 19:47 BP 110 / 78; Pulse 72; Resp 18; Pulse Ox 99% on R/A; Pain 7/10; aj1 20:30 BP 106 / 75; Pulse 67; Resp 18; Pulse Ox 100% ; aj1 21:33 BP 105 / 62; Pulse 73; Resp 18; Pulse Ox 98% on R/A; aj1 22:11 BP 107 / 70; Pulse 67; Resp 19 S; Pulse Ox 98% on R/A; jd3 22:53 BP 110 / 68; Pulse 76; Resp 17 S; Pulse Ox 100% on R/A; jd3 23:59 BP 106 / 71; Pulse 72; Resp 16 S; Pulse Ox 99% on R/A; jd3 18:55 Body Mass Index 27.44 (77.11 kg, 167.64 cm) sv MDM: 20:17 Patient medically screened. 23:38 Differential diagnosis: nonspecific abdominal pain, ovarian cyst, urinary tract gs infection. Data reviewed: vital signs, nurses notes, old medical records, lab test result(s), radiologic studies. Response to treatment: the patient's symptoms have markedly improved after treatment, the patient's symptoms have resolved after treatment, and as a result, I will discharge patient. 10/13 20:20 Order name: CBC with Diff; Complete Time: 21:38 10/13 20:20 Order name: Basic Metabolic Panel; Complete Time: 21:38 10/13 20:20 Order name: Urine Microscopic Only 10/13 23:20 Order name: Urine Dipstick--Ancillary (enter results) [facility] 10/13 23:20 Order name: Urine --Ancillary (enter results) [facility] 10/13 20:20 Order name: Urine Test (obtain specimen); Complete Time: 23:20 10/13 20:20 Order name: Urine Dipstick-Ancillary (obtain specimen); Complete Time: 23:21 10/13 20:27 Order name: Transvaginal Study Probe; Complete Time: 21:38 EDMS Administered Medications: 21:17 Drug: TORadol 15 mg Route: IVP; Site: left antecubital; ao 21:35 Follow up: Response: No adverse reaction aj1 Disposition: 10/13/18 23:31 Discharged to Home. Impression: Other and unspecified ovarian cysts. - Condition is Stable. - Discharge Instructions: Ovarian Cyst, [id number]. - Prescriptions for Naprosyn 500 mg Oral Tablet - take 1 tablet by ORAL route 2 times per day take with food; 20 tablet. Tylenol- Codeine #4 300-60 mg Oral Tablet - take 1 tablet by ORAL route every 6 hours As needed; 12 tablet. - Medication Reconciliation Form, Thank You Letter, Antibiotic Education, Prescription Opioid Use form. - Follow up: Goldy Michele MD; When: 2 - 3 days; Reason: Re-evaluation by your physician. Signatures: Dispatcher [employer] EDMS Paloma Storey RN RN aj1 Cristal Edmondson RN RN sv Ortiz, Alex, RN RN ao Starr, Gregory, MD MD Ibarra, Bhavin, RN RN jd3 Corrections: (The following items were deleted from the chart) 20:27 20:20 Pelvis Complete+US.DEBI ordered. EDMS EDMS 10/14 00:07 10/13 23:31 10/13/2018 23:31 Discharged to Home. Impression: Other and unspecified jd3 ovarian cysts. Condition is Stable. Forms are Medication Reconciliation Form, Thank You Letter, Antibiotic Education, Prescription Opioid Use. Follow up: Goldy Michele; When: 2 - 3 days; Reason: Re-evaluation by your physician. gs
[2018-10-14 00:11] LABS: Urine Bacteria <20 /HPF (<20); Urine Culture Reflex Order NOT NEEDED; Urine RBC <5 /HPF (NONE SEEN)
[2018-10-14 00:12] LABS: Urine Blood NEGATIVE (NEG); Urine Glucose NEGATIVE (NEG); Urine Protein 1+ (NEG); Urine Specific Gravity >1.030 (1.005-1.030); Urine pH 5.5 (5.0-7.0)
[2018-10-14 00:12] LABS: Urine Mucus 4+ /HPF (NONE SEEN)
[2018-10-14 00:52] VITALS: TEMP 98.6
[2018-10-14 00:58] VITALS: BP 106/71; O2SAT 99
== END 2018-10-14 00:07 | disposition home or self-care (01) ==
LOC: ER 18:33
DX: N83.299 Other ovarian cyst, unspecified side (principal)
CPT/HCPCS: 36415; 76830; 80048; 81003; 81015; 81025; 85025; 96374; 99284

== ENCOUNTER 2020-05-28 10:58 | Emergency (ER) | payer BC ==
[2020-05-28] MEDS ORDERED: ONDANSETRON 4 MG/2 ML VIAL ONE (12:17)
[2020-05-28] MEDS ORDERED: NA CHLORIDE 0.9% 1,000 ML ONE (12:17)
[2020-05-28] MEDS ORDERED: KETOROLAC 30 MG/ML INJ ONE (12:17)
[2020-05-28 12:26] LABS: Absolute Lymphocytes (CBC) 2.4 K/uL (0.7-4.9); Basophils % 1.2 % (0-1.3); Hematocrit 43.4 % (36.0-45.0); RBC Red Blood Cell Count 4.79 M/uL (3.86-4.86)
[2020-05-28 12:27] LABS: Albumin 3.6 g/dL (3.4-5.0); Bilirubin Total 0.3 mg/dL (0.2-1.0); Potassium 3.8 mmol/L (3.5-5.1); Protein, Total 7.5 g/dL (6.4-8.2)
[2020-05-28 13:18] LABS: Urine Blood NEGATIVE (NEG); Urine Glucose NEGATIVE (NEG); Urine Protein NEGATIVE (NEG); Urine Specific Gravity >1.030 (1.005-1.030); Urine pH 5.5 (5.0-7.0)
--- NOTE | 2020-05-28 13:21 | ER ---
Nurse's Notes [facility] Name: Yumiko Orozco Age: 39 yrs Sex: Female : 1980 Arrival Date: 05/28/2020 Time: 11:00 Bed 7 Private MD: Aly Demarco Diagnosis: Other ovarian cysts;Pelvic and perineal pain;Leiomyoma of uterus Presentation: 05/28 11:34 Chief complaint: Patient states: woke up Tuesday with right abd pain, has hx of ovarian iw cysts, was unable to be scheduled for US. Coronavirus screen: At this time, the client does not indicate any symptoms associated with coronavirus-19. Ebola Screen: Patient negative for fever greater than or equal to 101.5 degrees Fahrenheit, and additional compatible Ebola Virus Disease symptoms Patient denies exposure to infectious person. Patient denies travel to an Ebola-affected area in the 21 days before illness onset. No symptoms or risks identified at this time. Initial Sepsis Screen: Does the patient meet any 2 criteria? No. Patient's initial sepsis screen is negative. Does the patient have a suspected source of infection? No. Patient's initial sepsis screen is negative. Risk Assessment: Do you want to hurt yourself or someone else? Patient reports no desire to harm self or others. Onset of symptoms was May 25, 2020. 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 - Social history:: Smoking status: Patient reports the use of cigarette tobacco products, smokes one-half pack cigarettes per day. - Family history:: not pertinent. Screenin:10 Abuse screen: Denies threats or abuse. Denies injuries from another. Nutritional jl7 screening: No deficits noted. Tuberculosis screening: No symptoms or risk factors identified. Fall Risk IV access (20 points). Total Cabral Fall Scale indicates No Risk (0-24 pts). Assessment: 11:50 General: Appears in no apparent distress. uncomfortable, Behavior is calm, cooperative, jl7 appropriate for age. Pain: Complains of pain in right lower quadrant Pain currently is 8.5 out of 10 on a pain scale. Neuro: Level of Consciousness is awake, alert, obeys commands, Oriented to person, place, time, situation. Cardiovascular: Patient's skin is warm and dry. Respiratory: Airway is patent Respiratory effort is even, unlabored, Respiratory pattern is regular, symmetrical. GI: Abdomen is non-distended. : Reports pain in right RLQ. Derm: Skin is pink, warm \T\ dry. 13:00 Reassessment: Patient appears in no apparent distress at this time. Patient and/or jl7 family updated on plan of care and expected duration. Pain level reassessed. Patient is alert, oriented x 3, equal unlabored respirations, skin warm/dry/pink. Patient states symptoms have improved. Vital Signs: 11:34 BP 126 / 76; Pulse 83; Resp 16; Temp 98.4; Pulse Ox 97% on R/A; Weight 74.84 kg; Height iw 5 ft. 6 in. (167.64 cm); Pain 8/10; 12:10 BP 105 / 73; Pulse 60; Resp 15; Pulse Ox 98% ; jl7 13:01 BP 125 / 76; Pulse 76; Resp 15; Pulse Ox 100% ; jl7 11:34 Body Mass Index 26.63 (74.84 kg, 167.64 cm) ED Course: 11:00 Patient arrived in ED. ag5 11:00 Aly Demarco MD is Private Physician. ag5 11:35 Triage completed. iw 11:36 Arm band placed on. iw 11:42 Tasha Mistry, RAISA is Primary Nurse. jl7 11:44 Narciso Perdomo MD is Attending Physician. jerilyn 12:10 Patient has correct armband on for positive identification. Placed in gown. Bed in low jl7 position. Call light in reach. Side rails up X 1. Pulse ox on. NIBP on. Warm blanket given. 12:10 Initial lab(s) drawn, by me, sent to lab. Inserted saline lock: 20 gauge in left jl7 antecubital area, using aseptic technique. Blood collected. 12:24 US Transvaginal Study (Probe) In Process Unspecified. EDGA 13:01 Urine collected: clean catch specimen, cloudy. jl7 13:20 Aly Demarco MD is Referral Physician. [facility] 13:20 Chey Wilkes MD is Referral Physician. [facility] 13:45 No provider procedures requiring assistance completed. IV discontinued, intact, jl7 bleeding controlled, No redness/swelling at site. Pressure dressing applied. Administered Medications: 12:07 Drug: NS 0.9% 1000 ml Route: IV; Rate: 1 bolus; Site: left antecubital; jl7 13:00 Follow up: Response: No adverse reaction; IV Status: Completed infusion; IV Intake: jl7 1000ml 12:07 Drug: TORadol 30 mg Route: IVP; Site: left antecubital; jl7 12:30 Follow up: Response: No adverse reaction; Pain is decreased jl7 12:33 Not Given (Patient Refused): Zofran (Ondansetron) 4 mg IVP once; over 2 minutes jl7 13:29 Not Given (Physician Discretion): morphine 4 mg IVP once; RASS on ADMIN: Combtv4, Very jl7 Agttd3, Agttd2, Rstlss1, AlertClm0, Drwsy-1, Lt Sdtn-2, Mod Sdtn-3, Dp Sdtn-4, UnArsble-5 13:29 Not Given (Physician Discretion): Zofran (Ondansetron) 4 mg IVP once; over 2 minutes jl7 Intake: 13:00 IV: 1000ml; Total: 1000ml. jl7 Outcome: 13:21 Discharge ordered by . [facility] 13:45 Discharged to home ambulatory. jl7 13:45 Condition: stable 13:45 Discharge instructions given to patient, Instructed on discharge instructions, follow up and referral plans. medication usage, Demonstrated understanding of instructions, follow-up care, medications, Prescriptions given X 2. 13:46 Patient left the ED. jl7 Signatures: Dispatcher [employer] [facility] Narciso Perdomo MD MD cha Williams, Irene, RN Tasha Aguirre RN RN jl7 Nir Mai ag5 Corrections: (The following items were deleted from the chart) 11:36 11:34 BP 126 / 76; Pulse 83bpm; Resp 16bpm; Pulse Ox 97% RA; Temp 98.4F; iw iw
--- NOTE | 2020-05-28 13:21 | EDPHYS ---
Physician Documentation [facility] Name: Yumiko Orozco Age: 39 yrs Sex: Female : 1980 Arrival Date: 05/28/2020 Time: 11:00 Bed 7 Private MD: Aly Demarco ED Physician Narciso Perdomo HPI: 05/28 13:15 This 39 yrs old Female presents to ER via Ambulatory with complaints of Cyst. jerilyn 13:15 The patient presents with pelvic pain, that is located in/on the right lower quadrant. jerilyn Onset: The symptoms/episode began/occurred 2 day(s) ago. Modifying factors: The symptoms are alleviated by remaining still, the symptoms are aggravated by movement. Associated signs and symptoms: The patient has no apparent associated signs or symptoms. Severity of symptoms: At their worst the symptoms were mild, in the emergency department the symptoms are unchanged. The patient is sexually active, reportedly has a single partner. The patient has experienced similar episodes in the past, several times. 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 - Social history:: Smoking status: Patient reports the use of cigarette tobacco products, smokes one-half pack cigarettes per day. - Family history:: not pertinent. ROS: 13:15 Constitutional: Negative for fever, chills, and weight loss, Eyes: Negative for injury, jerilyn pain, redness, and discharge, ENT: Negative for injury, pain, and discharge, Neck: Negative for injury, pain, and swelling, Cardiovascular: Negative for chest pain, palpitations, and edema, Respiratory: Negative for shortness of breath, cough, wheezing, and pleuritic chest pain, Back: Negative for injury and pain, : Negative for injury, bleeding, discharge, and swelling, MS/Extremity: Negative for injury and deformity, Skin: Negative for injury, rash, and discoloration, Neuro: Negative for headache, weakness, numbness, tingling, and seizure, Psych: Negative for depression, anxiety, suicide ideation, homicidal ideation, and hallucinations, Allergy/Immunology: Negative for hives, rash, and allergies, Endocrine: Negative for neck swelling, polydipsia, polyuria, polyphagia, and marked weight changes, Hematologic/Lymphatic: Negative for swollen nodes, abnormal bleeding, and unusual bruising. 13:15 Abdomen/GI: Positive for abdominal pain, of the right lower quadrant. Exam: 13:15 Constitutional: This is a well developed, well nourished patient who is awake, alert, jerilyn and in no acute distress. Head/Face: Normocephalic, atraumatic. Eyes: Pupils equal round and reactive to light, extra-ocular motions intact. Lids and lashes normal. Conjunctiva and sclera are non-icteric and not injected. Cornea within normal limits. Periorbital areas with no swelling, redness, or edema. ENT: Nares patent. No nasal discharge, no septal abnormalities noted. Tympanic membranes are normal and external auditory canals are clear. Oropharynx with no redness, swelling, or masses, exudates, or evidence of obstruction, uvula midline. Mucous membranes moist. Neck: Trachea midline, no thyromegaly or masses palpated, and no cervical lymphadenopathy. Supple, full range of motion without nuchal rigidity, or vertebral point tenderness. No Meningismus. Chest/axilla: Normal chest wall appearance and motion. Nontender with no deformity. No lesions are appreciated. Cardiovascular: Regular rate and rhythm with a normal S1 and S2. No gallops, murmurs, or rubs. Normal PMI, no JVD. No pulse deficits. Respiratory: Lungs have equal breath sounds bilaterally, clear to auscultation and percussion. No rales, rhonchi or wheezes noted. No increased work of breathing, no retractions or nasal flaring. Back: No spinal tenderness. No costovertebral tenderness. Full range of motion. Skin: Warm, dry with normal turgor. Normal color with no rashes, no lesions, and no evidence of cellulitis. MS/ Extremity: Pulses equal, no cyanosis. Neurovascular intact. Full, normal range of motion. Neuro: Awake and alert, GCS 15, oriented to person, place, time, and situation. Cranial nerves II-XII grossly intact. Motor strength 5/5 in all extremities. Sensory grossly intact. Cerebellar exam normal. Normal gait. Psych: Awake, alert, with orientation to person, place and time. Behavior, mood, and affect are within normal limits. 13:15 Abdomen/GI: Inspection: abdomen appears normal, Bowel sounds: normal, Palpation: mild abdominal tenderness, moderate abdominal tenderness, in the right lower quadrant, Liver: no appreciated palpable abnormalities, Hernia: not appreciated. Vital Signs: 11:34 BP 126 / 76; Pulse 83; Resp 16; Temp 98.4; Pulse Ox 97% on R/A; Weight 74.84 kg; Height iw 5 ft. 6 in. (167.64 cm); Pain 8/10; 12:10 BP 105 / 73; Pulse 60; Resp 15; Pulse Ox 98% ; jl7 13:01 BP 125 / 76; Pulse 76; Resp 15; Pulse Ox 100% ; jl7 11:34 Body Mass Index 26.63 (74.84 kg, 167.64 cm) iw MDM: 11:44 Patient medically screened. [facility] 13:18 Differential diagnosis: dysmenorrhea, kidney stone, nonspecific abdominal pain, ovarian jerilyn cyst, uterine fibroids, urinary tract infection. Data reviewed: vital signs, nurses notes, lab test result(s), radiologic studies, ultrasound. 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 Test interpretation: by ED physician or midlevel provider:. Counseling: I had a detailed discussion with the patient and/or guardian regarding: the historical points, exam findings, and any diagnostic results supporting the discharge/admit diagnosis, lab results, radiology results. 05/28 11:48 Order name: CBC with Diff; Complete Time: 13:11 [facility] 05/28 11:48 Order name: Comprehensive Metabolic Panel; Complete Time: 13:11 [facility] 05/28 11:48 Order name: US Transvaginal Study (Probe) [facility] 05/28 13:08 Order name: Urine Dipstick--Ancillary (enter results); Complete Time: 13:19 05/28 13:08 Order name: Urine --Ancillary (enter results); Complete Time: 13:19 05/28 11:48 Order name: Urine Dipstick-Ancillary (obtain specimen); Complete Time: 13:01 [facility] 05/28 11:48 Order name: Urine Test (obtain specimen); Complete Time: 13:01 jerilyn Administered Medications: 12:07 Drug: NS 0.9% 1000 ml Route: IV; Rate: 1 bolus; Site: left antecubital; jl7 13:00 Follow up: Response: No adverse reaction; IV Status: Completed infusion; IV Intake: jl7 1000ml 12:07 Drug: TORadol 30 mg Route: IVP; Site: left antecubital; jl7 12:30 Follow up: Response: No adverse reaction; Pain is decreased jl7 12:33 Not Given (Patient Refused): Zofran (Ondansetron) 4 mg IVP once; over 2 minutes jl7 13:29 Not Given (Physician Discretion): morphine 4 mg IVP once; RASS on ADMIN: Combtv4, Very jl7 Agttd3, Agttd2, Rstlss1, AlertClm0, Drwsy-1, Lt Sdtn-2, Mod Sdtn-3, Dp Sdtn-4, UnArsble-5 13:29 Not Given (Physician Discretion): Zofran (Ondansetron) 4 mg IVP once; over 2 minutes jl7 Disposition: 05/28/20 13:21 Discharged to Home. Impression: Other ovarian cysts, Pelvic and perineal pain, Leiomyoma of uterus. - Condition is Stable. - Discharge Instructions: Ovarian Cyst, Pelvic Pain, Female, Pelvic Pain, Female, [id number], Ovarian Cyst, [id number]. - Prescriptions for Ibuprofen 600 mg Oral Tablet - take 1 tablet by ORAL route every 6 hours As needed take with food; 20 tablet. Tylenol- Codeine #3 300-30 mg Oral Tablet - take 2 tablets by ORAL route every 6 hours As needed; 20 tablet. - Medication Reconciliation Form, Thank You Letter, Antibiotic Education, Prescription Opioid Use form. - Follow up: Aly Demarco MD; When: 2 - 3 days; Reason: Recheck today's complaints, Continuance of care, Re-evaluation by your physician. Follow up: Chey Wilkes MD; When: 2 - 3 days; Reason: Recheck today's complaints, Re-evaluation by your physician. - Problem is new. - Symptoms have improved. Signatures: Dispatcher [employer] Narciso Arrieta MD MD cha Williams, Irene, RN RN iw Tasha Mistry RN RN jl7 Corrections: (The following items were deleted from the chart) 13:46 13:21 05/28/2020 13:21 Discharged to Home. Impression: Other ovarian cysts; Pelvic and jl7 perineal pain; Leiomyoma of uterus. Condition is Stable. Forms are Medication Reconciliation Form, Thank You Letter, Antibiotic Education, Prescription Opioid Use. Follow up: Aly Demarco; When: 2 - 3 days; Reason: Recheck today's complaints, Continuance of care, Re-evaluation by your physician. Follow up: Chey Wilkes; When: 2 - 3 days; Reason: Recheck today's complaints, Re-evaluation by your physician. Problem is new. Symptoms have improved. jerilyn
--- NOTE | 2020-05-28 13:23 | RAD REPORT ---
EXAM DESCRIPTION: US - Transvaginal Study Probe - 05/28/2020 12:24 pm CLINICAL HISTORY: PAIN COMPARISON: Transvaginal Study Probe dated 10/13/2018 TECHNIQUE: Endovaginal sonography was performed. FINDINGS: Uterus measures 6.7 x 4.7 x 5.2 cm. Along the posterior left uterus an exophytic 14 millim eter mass is present I say 0 o'clock to slightly hypoechoic to the myometrium. This is believed to be a small exophytic fibroid. In the posterior fundus there is a 15 millimeter oval hypoechoic mass bel ieved to be an intramural fibroid. No measurable endometrial stripe. Patient gives a history of prior endometrial ablation. There is a trace amount of fluid or old blood in the endometrial cavity in the lower uterine segment. A small left ovary is identified approximately 2-2.5 cm in size. No left ovarian or left adnexal mass . A pump or more prominent right ovary is identified measuring 3.1 x 2.3 x 1.9 cm. No discrete solid or cystic mass of this ovary. Doppler evaluation shows blood flow within the stroma. The right ovary is similar to comparison October 2018. No blood or fluid in the cul de sac. IMPRESSION: Right ovary is prominent relative to the left which matches the October 2018 study. No new or enlarging right ovarian or right adnexal finding. Doppler evaluation shows blood flow within the right ovarian stroma. Normal for age sized uterus shows 2 small fibroids unchanged from October 2018.
[2020-05-28 14:00] VITALS: TEMP 98.4
[2020-05-28 14:06] VITALS: BP 125/76; O2SAT 100
== END 2020-05-28 13:46 | disposition home or self-care (01) ==
LOC: ER 10:58
DX: N83.299 Other ovarian cyst, unspecified side (principal); D25.9 Leiomyoma of uterus, unspecified; F17.210 Nicotine dependence, cigarettes, uncomplicated
CPT/HCPCS: 96361; 85025; 36415; 81025; 81003; 80053; 76830; 96374; 99284; J7030; J2405

== ENCOUNTER 2020-06-10 08:27 | Day surgery (SDC) | payer BC ==
[2020-06-06 16:20] LABS: Absolute Lymphocytes (CBC) 2.5 K/uL (0.7-4.9); Basophils % 0.7 % (0-1.3); Hematocrit 43.4 % (36.0-45.0); RBC Red Blood Cell Count 4.73 M/uL (3.86-4.86)
[2020-06-06 16:37] LABS: Potassium 3.8 mmol/L (3.5-5.1)
[2020-06-10 08:45] LABS: Specific Gravity 1.025 (1.005-1.030)
[2020-06-10] MEDS ORDERED: Ringers Lactate 1,000 ML IV ONE ×2 (09:01→12:45)
[2020-06-10] MEDS ORDERED: KETOROLAC 30 MG/ML INJ ONE (09:22)
[2020-06-10] MEDS ORDERED: MIDAZOLAM HCL 2 MG/2 ML INJ ONE (09:22)
[2020-06-10] MEDS ORDERED: propofoL 200 MG/20 ML VIAL IV ONE (09:22)
[2020-06-10] MEDS ORDERED: LIDOCAINE 2% MPF 5 ML VIAL ONE (09:22)
[2020-06-10] MEDS ORDERED: FENTANYL CITR 250 MCG/5 ML ONE (09:23)
[2020-06-10] MEDS ORDERED: ROCURONIUM 50 MG/5 ML VIAL IV ONE (09:24)
[2020-06-10] MEDS ORDERED: ONDANSETRON 4 MG/2 ML VIAL ONE ×2 (09:24→13:46)
[2020-06-10] MEDS ORDERED: dexAMETHasone 4 MG/ML VIAL ONE (09:24)
[2020-06-10] MEDS: CEFOXITIN/SWI 1gm 1 GM/10 ML SYR ONE ×2 (09:26→11:33)
[2020-06-10] MEDS ORDERED: GLYCOPYRROLATE 0.2 MG/ML SYR ONE ×2 (12:10→12:31)
[2020-06-10] MEDS ORDERED: NEOSTIGMINE 1 MG/ML -5 ML ONE (12:27)
[2020-06-10] MEDS: HYDROMORPHONE HCL 1 MG/ML INJ ONE ×2 (12:40→12:46)
[2020-06-10] MEDS ORDERED: MEPERIDINE HCL 25 MG/ML SYR ONE ×2 (12:48→13:04)
[2020-06-10] MEDS ORDERED: PROMETHAZINE INJ 25 MG/ML AMP ONE (12:54)
[2020-06-10] MEDS: FENTANYL CITR 100 MCG/2 ML ONE ×3 (12:59→13:08)
--- NOTE | 2020-06-10 13:01 | OP ---
Date of Procedure: 06/10/2020 Surgeon: Gilberto Johnston MD Court Worker: GRAZYNA Morgan Preoperative Diagnosis: Right lower quadrant abdominal pain. Postoperative Diagnosis: Right lower quadrant abdominal pain. Procedure: Diagnostic laparoscopy and lysis of adhesion by Dr. Michele and laparoscopic appendecto my by me. Co-surgeon: Goldy Michele MD. Estimated Blood Loss: Minimal. Specimen: Appendix. Findings: As above. Anesthesia: General. Complications: None. The patient tolerated the procedure in stable condition, taken to Recovery in good general condition. Procedure In Detail: The patient was brought to the OR and placed in supine position. General anest hesia begun. The Patient was prepped and draped in usual sterile fashion and then Marcaine 0.5% infiltrated locally. 15 blade was used to make a 1 cm supraumbilical midline incision. Subcutaneous tissue was divided. Fascia was identified and divided. #1 Vicryl stay suture was placed. Peritoneal cavity was entered with sharp and blunt dissection. A 12-mm trocar was placed into the peritoneal cavity under direct v ision. Pneumoperitoneum was established and then two 5 mm trocars were placed, 1 in the suprapubic r egion and 1 in the left lower quadrant. Laparoscopy revealed some adhesions in the pelvis and Dr. Raina cristina will describe this portion of the case. The liver, the peritoneal surface of the colon, the small bowel were all within normal limits. The appendix was retrocecal. Tip of the appendix was sli ghtly inflamed. This was removed. LigaSure was used to divide the mesoappendix and then Endo-BENEDICT st apling device was used to divide the base of the appendix on the cecum. The appendix was retrieved t hrough the umbilicus via an EndoCatch bag. Then right lower quadrant and pelvis examined carefully. No evidence of bleeding or bowel injury appreciated. All trocars were removed under vision. Stay s utures were tied to each other to reapproximate the fascial defect. Subcutaneous wounds were irrigat ed. Bleeding controlled cautery. 3-0 chromic used to approximate the subcutaneous tissue and close the skin. Sterile dressing was applied. The patient was awakened and taken to Recovery in good gene ral condition. Discharge Note: The patient will go to Day Surgery and home when stable. Disposition: Home. Condition: Stable. Discharge Instructions: Resume home medications and diet. Activity as tolerated. No heavy lifting. Remove outer dressing in 2 days. Shower. Keep wound clean and dry. Follow up in my office in 1 w [place]. Call for appointment. Follow with Dr. Michele. Tylenol No.3 one tablet p.o. q.4 p.r.n. pain . Keep Steri-Strips on at all times. /MODL Voice ID: [id number] Report ID: [id number]
[2020-06-10 13:23] VITALS: TEMP 97.4; O2SAT 97
[2020-06-10] MEDS ORDERED: HYDROCODONE/APAP 7.5/325 MG TAB ONE (13:45)
[2020-06-10 14:11] VITALS: BP 103/63
--- NOTE | 2020-06-10 22:58 | OP ---
Surgeon: Goldy Michele MD Preoperative Diagnosis: Right lower quadrant pain. Procedures: Diagnostic laparoscopy, appendectomy, release of uterine suspension. Postoperative Diagnosis: Right lower quadrant pain. Description Of Procedure: After Dr. Johnston had the patient prepped and draped in the usual fashion an d established laparoscopic ports, evaluation of the uterus, tubes and ovaries made, bilaterally uteri ne suspension into the anterior abdominal cao was noted. The tubes were otherwise normal bilateral ly. Ovaries were normal with a small ovarian cyst on the left. There was a left posterior uterine l eiomyomata which was previously identified as approximately 1.6 cm. Pelvis otherwise showed no evide nce of endometriosis or other abnormalities. Because of the patient's pain without obvious other cau se, the tension from the uterine suspension was released bilaterally. Uterine position did not ayala e in any way after this. The remainder of the procedure was finished by Dr. Johnston and his dictation is to follow. KATIE/ERIN Voice ID: [id number] Report ID: [id number]
== END 2020-06-10 14:14 | disposition home or self-care (01) ==
LOC: OR 08:27
PROVIDERS: ATTEND Surgery
PROC: 0UQG4ZZ Repair Vagina, Percutaneous Endoscopic Approach (ICD-10-PCS; 2020-06-10)
PROC: 0DTJ4ZZ Resection of Appendix, Percutaneous Endoscopic Approach (ICD-10-PCS; principal; 2020-06-10 10:00)
DX: K35.80 Unspecified acute appendicitis (principal); R10.2 Pelvic and perineal pain; Z20.828 Contact with and (suspected) exposure to other viral communicable diseases
CPT/HCPCS: 44970; 58578; 85025; 80048; 36415; 81025; 88304; U0002; J2704; J1100; J2550; J2250; J3010 ×2; J2175 ×2; J1170; J2710; J7120 ×2; J2405 ×2

== ENCOUNTER 2022-02-10 19:40 | Emergency (ER) | payer BC ==
--- NOTE | 2022-02-10 20:01 | ER ---
Nurse's Notes [facility] Name: Yumiko Orozco Age: 41 yrs Sex: Female : 1980 Arrival Date: 02/10/2022 Time: 19:45 Bed Waiting Private MD: Diagnosis: ED Course: 02/10 19:45 Patient arrived in ED. [id number] Administered Medications: No medications were administered Outcome: 20:01 Patient left the ED. ld1 Signatures: Sherri Elliott RN RN ld1 Anju Balbuena jj6
== END 2022-02-10 20:01 | disposition left against medical advice (07) ==
LOC: ER 19:40
DX: Z02.9 Encounter for administrative examinations, unspecified (principal)